=== PATIENT | male | born 1955 | race Caucasian/White ===

== ENCOUNTER 2016-08-28 08:08 | Day surgery (SDC) | payer OTHER ==
[2016-08-25 14:23] VITALS: BMI 28.7
[2016-08-28] MEDS ORDERED: PROPOFOL 20 ML ONE ×2 (08:14)
[2016-08-28 10:30] VITALS: BP 116/78; PULSE 74; TEMP 98
--- NOTE | 2016-08-29 10:18 | PATH ---
Surgical Pathology Report Patient Name: CHARITY GONZALEZ [facility]. Rec. #: [id number] /Age/Gender: 1955 (Age: 61) / M Account: [id number] Location: [facility]-ENDOSCOPY Taken: 08/28/2016 Received: 08/28/2016 Reported: 08/29/2016 Physicians: Ari Orr M.D. Specimen(s) Received LEFT COLON POLYP Clinical History Rule out colon cancer Colon polyp Final Diagnosis COLON, LEFT, BIOPSY: TUBULAR ADENOMA. Electronically Signed Choco Mir M.D. Gross Description Received in formalin, labeled "left colon polyp" is a bhatt, irregular portion of soft tissue measuring 0.3 cm. in greatest dimension. The specimen is submitted in toto in one cassette. 08/28/201608/28/2016
== END 2016-08-28 09:50 | disposition home or self-care (01) ==
LOC: FASU-ENDO 08:08
PROVIDERS: ATTEND Internal Medicine Gastroenterology
PROC: 0DBM8ZX Excision of Descending Colon, Via Natural or Artificial Opening Endoscopic, Diagnostic (ICD-10-PCS; principal; 2016-08-28 08:57)
DX: Z12.11 Encounter for screening for malignant neoplasm of colon (principal); D12.4 Benign neoplasm of descending colon
CPT/HCPCS: 88305-TC

== ENCOUNTER 2018-10-20 10:02 | Day surgery (SDC) | payer OTHER ==
[2018-10-19 14:09] VITALS: BMI 29.4
--- NOTE | 2018-10-20 08:35 | HP ---
[facility]ellite [facility] - Chief Complaint Chief Complaint: left hand pain - Past Medical History Allergies/Adverse Reactions: Allergies Allergy/AdvReac Type Severity Reaction Status Date / Time No Known Allergies Allergy Unverified 10/19/18 14:09 - Current Medications Current Medications: Home Medications Medication Instructions Recorded Amlodipine Besylate 10 mg PO DAILY 06/18/16 Budesonide/Formeterol Fumarate 1 inh PO BID 06/18/16 [SYMBICORT 160/4.5mcg -] Bupropion HCl [Bupropion Xl] 300 mg PO DAILY 06/18/16 Losartan/Hydrochlorothiazide 1 each PO DAILY 06/18/16 [Losartan-Hctz 100-25 mg Tab] Tiotropium [place] [Spiriva] 1 inh PO DAILY 06/18/16 Multivit-Min/FA/Lycopen/Lutein 1 each PO DAILY 08/25/16 [Centrum Silver Tablet] Rosuvastatin Calcium [Crestor] 5 mg PO DAILY 10/19/18 Hydrocodone/Acetaminophen 1 - 2 each PO Q6H #40 tablet MDD 6 10/20/18 [Hydrocodone-Acetamin 5-325 mg] Satellite Physical Exam - Physical Examination General Appearance: Well Nourished, Well Developed, Alert & Oriented x3 ENT: Clear Lung: Normal air movement Heart: Regular rate & rhythm Extremities: Other (left hand- + ttp, + swelling,, decr rom, nvi xrays show severe basal jt OA) Neurological: Intact, Alert, Oriented Satellite Impression/Plan - Impression/Plan Impression: left basal jt OA Operative Procedure: left basal joint arthroplasty Date to be Performed: 10/20/18
[2018-10-20] MEDS ORDERED: oxyCODONE HCL 5 MG TABLET PO PRN (10:37)
[2018-10-20] MEDS ORDERED: ONDANSETRON 4 MG/2 ML VIAL IVPUSH PRN (10:37)
[2018-10-20] MEDS ORDERED: LACTATED RINGERS SOLUTION 1,000 ML IV SCH (10:45)
[2018-10-20] MEDS ORDERED: MIDAZOLAM HCL 2 MG/2 ML SINGLE DOSE VIAL ONE ×3 (11:44→12:12)
[2018-10-20] MEDS ORDERED: ROPIVACAINE HCL 0.5% 30ML VIAL ONE (12:11)
[2018-10-20] MEDS ORDERED: PROPOFOL 20 ML ONE ×2 (13:29→13:36)
[2018-10-20] MEDS ORDERED: DEXAMETHASONE SOD PHOSPHATE 4 MG/1 ML VIAL ONE (13:31)
[2018-10-20] MEDS ORDERED: LIDOCAINE HCL/PF 2% SDV 5ML VIAL ONE (13:31)
[2018-10-20] MEDS ORDERED: ceFAZolin SODIUM 1 GM VIAL IVPB ONE (13:40)
[2018-10-20] MEDS ORDERED: KETOROLAC TROMETHAMINE 30 MG/1 ML VIAL ONE (15:36)
--- NOTE | 2018-10-20 15:54 | OP ---
Operative Note - Note: Operative Date: 10/20/18 Pre-Operative Diagnosis: left Basal Joint Arthritis Operation: left basal joint arthroplasty, Trapeziectomy, LRTI Implants: 2 x .062 k-wires Post-Operative Diagnosis: Same as Pre-op Surgeon: Jose Sibley Anesthesiologist/MANUFACTURING ENGINEER: Dave Aguayo Anesthesia: Local, MAC Specimens Removed: trapezium left wrist Estimated Blood Loss (mls): 0 Drains, Volume Out (mls): 0 Blood Volume Replaced (mls): 0 Fluid Volume Replaced (mls): 1,500 Operative Report Dictated: Yes
--- NOTE | 2018-10-20 17:11 | SPEC ---
DATE OF OPERATION: 10/20/2018 PREOPERATIVE DIAGNOSIS: Left basal joint arthritis. POSTOPERATIVE DIAGNOSIS: Left basal joint arthritis. PROCEDURE: Left basal joint arthroplasty, excision of trapezium bone, flexor carpi radialis (FCR) tendon harvest with LRTI (ligament reconstruction/tendon interposition). SURGEON: Raiza Tomlinson MD STABILIZER OPERATOR: None. ANESTHESIOLOGIST: Dave Aguayo CRNA ANESTHESIA: Left interscalene block and MAC anesthesia. DRAINS: None. COMPLICATIONS: None. SPECIMEN: Trapezium bone, left wrist. BLOOD LOSS: Minimal. BLOOD GIVEN: None. FLUID REPLACEMENT: 1500 mL. INDICATION: This patient is a 63-year-old male with preoperative diagnosis of significant left basal joint arthritis. After understanding the potential risk, complications, alternatives, and benefits of surgical versus nonsurgical treatment, the patient elected to undergo this procedure. PROCEDURE: Patient was brought to the operating room. Peripheral IV placed and IV sedation given. One gram of IV Ancef was given. The left upper extremity was prepped and draped in sterile fashion. A 3. Loupe magnification was used throughout the entire case. A small lazy S incision was marked out over the left basal joint. In addition, three small transverse stab incisions were marked out with a marking pen for later harvesting of the FCR tendon. A mix of 20 mL 0.5% Marcaine, 1% Lidocaine was injected in and around the surgical incisions. The left upper extremity was then elevated and exsanguinated with an Esmarch bandage and the tourniquet inflated to 250 mm Mercury. Case was begun by using a No. 15 scalpel blade to make a lazy S incision over the left basal joint. Subcutaneous hemostasis was achieved with a bipolar cautery. Crossing neurovascular structures were visualized, mobilized and retracted. The hypertrophic capsule of the left basal joint was incised longitudinally with first a #15 scalpel blade. A small malcolm-osteal dissection done. The 2-0 silk retracting sutures were placed into both dorsal and volar flap, retracting the hypertrophic capsule, exposing the first carpometacarpal joint. A rongeur was used to remove synovitis and a 0.62 K-wire placed into the trapezium. X-rays were taken to document that indeed this was the correct bone. Next, circumferential dissection was done with a No. 15 scalpel blade. An osteotome was used to remove the trapezium in its entirety. A rongeur was used to remove some small pieces of debris. The trapezium was passed off the field as specimen. Once the trapeziectomy was completed the area was irrigated and washed out and x-rays were taken documenting that the entire trapezium and osteophytes were removed. Next our attention turned to harvesting the flexor carpi radialis tendon. Three small stab incisions were made with a No. 15 scalpel blade. Subcutaneous hemostasis achieved with a bipolar cautery to try to keep the incisions as small as possible. A Littler scissor as well as a Franklin elevator were used to free up the FCR tendon from its surrounding tendon sheath. Next turning our attention to the most proximal of these stab wounds, first a No. 15 scalpel blade was utilized to transversely cut the entire FCR tendon. It was then passed through each sequential more distal incision with a mosquito forceps. Then using another mosquito to pass it through the first carpometacarpal joint incision. The proximal stab wounds were irrigated, washed out and closure done with some 4-0 undyed Vicryl in the subdermal layer and final skin re-approximation done with the 4-0 subcuticular Biosyn stitch and Steri-Strips. Next all excessive muscle was removed off the FCR tendon with a No. 15 scalpel blade. It was then cut in half, leaving its distal insertion. I then used a small oval bur to make a hole in the left thumb metacarpal from a dorsal radial position, down to where the volar oblique ligament usually inserts. A 3-0 nylon suture was placed into the distal aspect of the dorsal most FCR tendon half and a suture passer was placed through the base of the metacarpal and grabbed the nylon sutures and passed the FCR tendon through the base of the thumb metacarpal. Next, using a 0.062 K-wire and putting the thumb in the position of abduction and slight extension as well as pulling the longitudinal traction to maintain the trapezial space, I put the 0.062 K-wire across the base of the thumb metacarpal. X-rays were taken documenting excellent maintenance of the trapezial space and position of the hardware as well as the thumb metacarpal. Next, the FCR tendon was wrapped around, was tightened, brought around the base of the thumb metacarpal articular surface and tied to itself using 4-0 undyed Vicryl. The extra FCR tendon was then sutured to the other half of the FCR tendon using 4-0 undyed Vicryl with a slip stitch fashion and I made an anchovy which was placed into the trapezial space. This was sutured with 4-0 undyed Vicryl both to the ligament reconstruction as well as to the first CMC joint capsule. It all came together quite nicely. The area was irrigated and washed out and closure begun. The capsule was closed with 4-0 undyed Vicryl which was further sutured to the anchovy interposition graft. Then the deep dermal layer closed with 4-0 undyed Vicryl, skin re-approximated with a running subcuticular 4-0 Biosyn stitch. The area was then covered with Steri-Strips. The K-wire covered with a pin cap. The area was then washed and dried, covered with 4 x 4, fluffs to the fingers, Webril and a 5-inch Orthoglass thumb spica splint was applied and wrapped with a Brain and Coban. The tourniquet was taken down after a total tourniquet time of 96 minutes. There were no complications during the case. There was no blood loss and the patient was brought to the ambulatory recovery room in stable condition. RAIZA TOMLINSON M.D. [id number]
[2018-10-20 17:54] VITALS: BP 148/81; PULSE 93; TEMP 97
--- NOTE | 2018-10-22 12:48 | PATH ---
Surgical Pathology Report Patient Name: CHARITY GONZALEZ Med. Rec. #: [id number] /Age/Gender: 1955 (Age: 63) / M Account: [id number] Location: [facility] SURGICAL Taken: 10/20/2018 Received: 10/21/2018 Reported: 10/22/2018 Physicians: Jose Sibley M.D. Specimen(s) Received BONE LEFT WRIST Clinical History Primary arthritis left hand Final Diagnosis BONE, LEFT WRIST, EXCISION: BONE AND CARTILAGE WITH REACTIVE CHANGES. Electronically Signed Choco Mir M.D. Gross Description Received in formalin labeled "bone left wrist," is a 3.6 x 3.0 x 0.7 cm aggregate of bhatt-yellow bone fragments. A quality control representative portion is submitted in one cassette, following decalcification. 10/21/201810/21/2018
== END 2018-10-20 17:55 | disposition home or self-care (01) ==
LOC: JASU-SURG 10:02
PROVIDERS: ATTEND Orthopaedic Surgery
PROC: 0RQT0ZZ Repair Left Carpometacarpal Joint, Open Approach (ICD-10-PCS; 2018-10-20)
PROC: 0LU607Z Supplement Left Lower Arm and Wrist Tendon with Autologous Tissue Substitute, Open Approach (ICD-10-PCS; principal; 2018-10-20 11:30)
DX: M19.042 Primary osteoarthritis, left hand (principal)
CPT/HCPCS: 73130-TC-LT-FY; 88304-TC; 88311-TC; 94760

== ENCOUNTER 2023-11-09 04:48 | Day surgery (SDC) | payer OTHER, MEDICARE ==
[2023-11-06 11:20] VITALS: BMI 31.5
[2023-11-09 12:02] VITALS: TEMP 98.2
[2023-11-09 12:12] VITALS: PULSE 76
[2023-11-09 12:28] VITALS: RESP 18
[2023-11-09 12:36] VITALS: BP 133/73
== END 2023-11-09 12:35 | disposition home or self-care (01) ==
LOC: JASU-ENDO 04:48
PROVIDERS: ATTEND Internal Medicine Gastroenterology
PROC: 3E0H8KZ Introduction of Other Diagnostic Substance into Lower GI, Via Natural or Artificial Opening Endoscopic (ICD-10-PCS; 2023-11-09)
PROC: 0DBL8ZX Excision of Transverse Colon, Via Natural or Artificial Opening Endoscopic, Diagnostic (ICD-10-PCS; principal; 2023-11-09 10:15)
DX: D12.3 Benign neoplasm of transverse colon (principal); K64.8 Other hemorrhoids; I10 Essential (primary) hypertension
CPT/HCPCS: 88305-TC

== ENCOUNTER 2024-02-15 06:03 | Day surgery (SDC) | payer OTHER, MEDICARE ==
[2024-02-10 13:15] VITALS: BMI 31.5
[2024-02-15 07:26] VITALS: RESP 16
[2024-02-15 09:07] VITALS: BP 121/69; PULSE 64; TEMP 98.3
== END 2024-02-15 09:15 | disposition home or self-care (01) ==
LOC: JASU-ENDO 06:03
PROVIDERS: ATTEND Internal Medicine Gastroenterology
PROC: 0DBL8ZX Excision of Transverse Colon, Via Natural or Artificial Opening Endoscopic, Diagnostic (ICD-10-PCS; 2024-02-15)
PROC: 0DBM8ZX Excision of Descending Colon, Via Natural or Artificial Opening Endoscopic, Diagnostic (ICD-10-PCS; 2024-02-15)
PROC: 0DBN8ZX Excision of Sigmoid Colon, Via Natural or Artificial Opening Endoscopic, Diagnostic (ICD-10-PCS; principal; 2024-02-15 08:00)
DX: D12.4 Benign neoplasm of descending colon (principal); K63.5 Polyp of colon; K57.30 Diverticulosis of large intestine without perforation or abscess without bleeding; K64.8 Other hemorrhoids; Z86.010 Personal history of colon polyps; I10 Essential (primary) hypertension; E11.9 Type 2 diabetes mellitus without complications
CPT/HCPCS: 88305-TC